=== PATIENT | male | born 1985 | race Caucasian/White ===

== ENCOUNTER 2020-02-28 13:53 | Inpatient (IN) | payer OTHER ==
[~2020-02-28] VITALS: Ht 182.9 cm; Wt 79.8 kg
[2020-02-28] VITALS (11 sets, daily range): BP systolic 128–163; BP diastolic 62–98
[~2020-02-28 13:53] MED LIST: FLEXERIL PO; IBUPROFEN 600600 M1 PO; NAPROSYN500 MG PO; NOHOMEMEDICATIONS; NORCO 5-325 TA1 EACH PO; SENNA-DOCUSATE1 EACH PO; ZANTAC 150MG T150 M1 PO
[2020-02-28 14:57] LABS: HEMATOCRIT 52.2 % (42.0-52.0); HEMOGLOBIN 17.8 gm/dL (14.0-18.0); MCH 31.1 pg (26.0-34.0); MCHC 34.1 g/dL (28.0-37.0); MCV 91.3 fL (80.0-100.0); MPV 10.1 fl. (7.2-11.1); NUCLEATED RBCS 0 /100WBC; PLATELET COUNT* 358 thou/uL (150-400); RBC 5.72 mil/uL (4.50-6.00); RDW-CV 13.4 % (10.5-14.5); WBC 15.4 thou/uL (4.0-11.0)
[2020-02-28 15:06] LABS: CALCIUM 10.5 mg/dL (8.5-10.1); CREATININE 1.7 mg/dL (0.6-1.3); POTASSIUM 5.4 mmol/L (3.5-5.1)
[2020-02-28 15:11] LABS: INFLUENZA A ANTIGEN Negative (Negative); INFLUENZA B ANTIGEN Negative (Negative)
[2020-02-28 15:14] LABS: ALBUMIN 4.6 g/dL (3.4-5.0); TOTAL BILIRUBIN 0.4 mg/dL (<0.1-1.0); TOTAL PROTEIN 9.8 g/dL (6.4-8.2)
[2020-02-28 15:29] LABS: ABSOLUTE LYMPHOCYTES 2.2 thou/uL (0.8-5.3); ABSOLUTE MONOCYTES 0.9 thou/uL (0.0-1.2); ABSOLUTE NEUTROPHILS 12.3 thou/uL (1.6-8.1); PLATELET ESTIMATE ADEQUATE
[2020-02-28 15:30] LABS: URINE BLOOD TRACE (Negative); URINE CLARITY CLEAR; URINE COLOR YELLOW; URINE GLUCOSE-RANDOM 2+ (Negative); URINE KETONES 2+ (Negative); URINE LEUKOCYTES-REFLEX NEGATIVE (Negative); URINE NITRITE-REFLEX NEGATIVE (Negative); URINE PROTEIN 1+ (Negative); URINE SPECIFIC GRAVITY >= 1.030 (1.005-1.030); URINE UROBILINOGEN 0.2 E.U./dl (0.2-1.0)
[2020-02-28 15:31] LABS: URINE BILIRUBIN 1+ (Negative)
[2020-02-28 15:32] LABS: ICTOTEST (BILI CONFIRMATORY) Negative (Negative)
[2020-02-28 15:36] LABS: AMP/METHAMP Negative (Negative); BARBITURATES Negative (Negative); BENZODIAZEPINES Negative (Negative); COCAINE Negative (Negative); METHADONE Negative (Negative); OPIATES Negative (Negative); PCP Negative (Negative); THC POSITIVE (Negative)
--- NOTE | 2020-02-28 15:42 | EKG ---
[place] [address] ELECTROCARDIOGRAM REPORT Name: MICHAEL VIVEROS Room: [facility]#: [id number] Admission: 02/28/20 Attend Phys: Discharge: Date of : 87 Date of Service: 02/28/20 1502 Report #: [id number] THIS REPORT FOR: //name// [facility] ED Test Date: 2020-02-28 Test Time: 15:02:07 Pat Name: MICHAEL VIVEROS Department: Room: Gender: Checker/Stocker: [place] : 1985 Requested By: Kenya Elaine Order Number: [id number] MD: Tom Shahid Measurements Intervals [place] Rate: 105 P: 68 MO: 142 QRS: 37 QRSD: 84 T: 59 QT: 332 QTc: 439 Interpretive Statements Sinus tachycardia LAE, consider biatrial enlargement Baseline wander in lead(s) V3 No previous ECG available for comparison Electronically Signed On 02-28-2020 15:41:20 CDT by Tom Shahid [email or web address] <ELECTRONICALLY SIGNED> By: Tom Shahid MD, [facility] 02/28/20 1541 1502 1502 Tom Shahid MD, [facility] /EPI
[2020-02-28 15:49] LABS: BE -19.7 mmol/L (-2 to +3); PCO2 20.3 mmHg (35.0-45.0); PO2 106.8 mmHg (75.0-100.0)
[2020-02-28 15:51] LABS: pH 7.149 (7.340-7.450)
--- NOTE | 2020-02-28 17:15 | NUR ---
1615 patient received from er per cart. see admission assessment
[2020-02-28 19:41] LABS: CREATININE 1.1 mg/dL (0.6-1.3)
[2020-02-28 19:53] LABS: POTASSIUM 3.9 mmol/L (3.5-5.1)
[2020-02-28 19:56] LABS: ALBUMIN 3.8 g/dL (3.4-5.0); PHOSPHORUS* 3.3 mg/dL (2.5-4.9)
[2020-02-28 20:04] LABS: MAGNESIUM 1.7 mg/dL (1.8-2.4)
--- NOTE | 2020-02-28 20:29 | NUR ---
RECEIVED REPORT AND ASSUMED CARE OF THE PATIENT AT 1900. VSS. FULL ASSESSMENT COMPLETED CHARTED. BED IN LOW POSITION AND LOCKED, CALL LIGHT AND PERSONAL ITEMS IN REACH.
[2020-02-29] VITALS (21 sets, daily range): BP systolic 109–152; BP diastolic 64–92
[2020-02-29 00:11] LABS: ALBUMIN 3.6 g/dL (3.4-5.0); CALCIUM 8.4 mg/dL (8.5-10.1); CREATININE 0.9 mg/dL (0.6-1.3); MAGNESIUM 2.2 mg/dL (1.8-2.4); PHOSPHORUS* 1.9 mg/dL (2.5-4.9); POTASSIUM 4.5 mmol/L (3.5-5.1)
[2020-02-29 04:10] LABS: ALBUMIN 3.5 g/dL (3.4-5.0); CALCIUM 8.4 mg/dL (8.5-10.1); CREATININE 0.8 mg/dL (0.6-1.3); POTASSIUM 4.5 mmol/L (3.5-5.1)
[2020-02-29 04:16] LABS: ALBUMIN 3.5 g/dL (3.4-5.0); CALCIUM 8.2 mg/dL (8.5-10.1); CREATININE 0.9 mg/dL (0.6-1.3); POTASSIUM 4.5 mmol/L (3.5-5.1); TOTAL BILIRUBIN 0.3 mg/dL (<0.1-1.0); TOTAL PROTEIN 7.2 g/dL (6.4-8.2)
[2020-02-29 04:21] LABS: HEMATOCRIT 41.4 % (42.0-52.0); MCHC 35.8 g/dL (28.0-37.0); MCV 86.5 fL (80.0-100.0); MPV 8.8 fl. (7.2-11.1); RBC 4.79 mil/uL (4.50-6.00); RDW-CV 12.7 % (10.5-14.5); WBC 15.1 thou/uL (4.0-11.0)
[2020-02-29 04:42] LABS: HEMOGLOBIN 14.8 gm/dL (14.0-18.0)
[2020-02-29 05:44] LABS: URINE BILIRUBIN NEGATIVE (Negative); URINE BLOOD NEGATIVE (Negative); URINE CLARITY CLEAR; URINE COLOR YELLOW; URINE GLUCOSE-RANDOM 1+ (Negative); URINE KETONES 2+ (Negative); URINE LEUKOCYTES NEGATIVE (Negative); URINE NITRITE NEGATIVE (Negative); URINE PROTEIN NEGATIVE (Negative); URINE UROBILINOGEN 0.2 E.U./dl (0.2-1.0)
--- NOTE | 2020-02-29 09:16 | NUR ---
Nutrition: Pt admitted with DKA. Consult for "new diabetic." Spoke with RN, pt is tele status, likely to go upstairs soon. Eating CHO controlled diet. Insulin drip stopped. BG 197, albumin 3.5. Wt: 168#. Unsure at this point if going home on insulin. RD will follow up tomorrow for diet education when out of ICU, 03/01/20.
--- NOTE | 2020-02-29 15:36 | NUR ---
CM ASSESSMENT: CM SPOKE TO THE PT TO DISCUSS HIS DISCHARGE PLANNING NEEDS. PT A&O, ACTIVE AND INDPENDENT. PT DOES NOT HAVE INSURANCE AND THIS MAY CREATE A BARRIER TO DISCHARGE DEPENDING ON WHAT IS NEEDED. CM INFORMED THE MANAGER CHANGE OF THE NEED TO DISPENSE PT A NEW DIABETIC SUPPLY KIT, SO THAT THE RN IN-CHARGE OF THE PT IS ABLE TO DO THE DIABETIC TEACHING WITH THE PT. CM ALSO FAXED THE RN A RESOURCE PACKET FOR THE PT TO INCLUDE GOOD-RX CARD, COMMUNITY RESOURCE LIST AND CONTACT INFO FOR THE [facility] IN HIS HOME TOWN (TO HELP WILL MEDICATION ASSISTANCE DIABETIC SUPPLIES, AND F/U APPOINTMENTS). CM TO INFORM THE PHYSICIAN OF THE NEED TO ORDER MEDICATIONS FROM THE $4 LIST IF POSSIBLE AND CM WILL ATTEMPT TO ASSIST WILL MEDICATION ASSISTANCE IF NEEDED. CM WILL REMAIN AVAILABLE TO ASSIST AND FOLLOW NEEDED.
--- NOTE | 2020-02-29 17:49 | NUR ---
PT IS A/O X4,VSS.PT DOWNGRADED TO TELE STATUS.ALL DRIPS OFF THIS AM.CARB CONTROL DIET STARTED AND TOLERATED.SLIDING SCALE INSULIN STARTED.NO C/O PAIN.STAFF GENETIC COUNSELOR IS TO BRING DIABETES MONITOR BEFORE DISCHARGE.DIETITIAN TO PROVIDE EDUCATION TO PT 03/01/20.RESOURCES GIVEN TO PT FROM CASE MANAGEMENT.PT INFORMED OF PLAN OF CARE AND COMMUNICATES UNDERSTANDING.CALL LIGHT AND FALL PRECAUTIONS IN PLACE.WILL CONTINUE TO MONITOR FOR DURATION OF SHIFT.
--- NOTE | 2020-02-29 19:54 | NUR ---
REPORT GIVEN TO SERGEI AKINS. PATIENT TRANSFERRED TO TELE UNIT AT 1940.
[2020-03-01 02:07] LABS: GLYCOHEMOGLOBIN (HGB A1C) 12.9 % (4.8-5.6)
[2020-03-01 03:24] LABS: ABSOLUTE EOSINOPHILS 0.1 thou/uL (0.0-0.7); ABSOLUTE LYMPHOCYTES 2.5 thou/uL (0.8-5.3); ABSOLUTE MONOCYTES 0.6 thou/uL (0.0-1.2); ABSOLUTE NEUTROPHILS 6.7 thou/uL (1.6-8.1); BASOPHILS 0.1 %; EOSINOPHILS 1.1 %; HEMATOCRIT 37.3 % (42.0-52.0); HEMOGLOBIN 13.5 gm/dL (14.0-18.0); LYMPHOCYTES 25.3 %; MCH 31.4 pg (26.0-34.0); MCHC 36.2 g/dL (28.0-37.0); MCV 86.7 fL (80.0-100.0); MONOCYTES 6.5 %; MPV 9.3 fl. (7.2-11.1); NUCLEATED RBCS 0 /100WBC; PLATELET COUNT* 215 thou/uL (150-400); WBC 9.9 thou/uL (4.0-11.0)
[2020-03-01 03:36] LABS: PHOSPHORUS* 1.8 mg/dL (2.5-4.9)
[2020-03-01 03:41] LABS: ALBUMIN 3.3 g/dL (3.4-5.0); CALCIUM 8.4 mg/dL (8.5-10.1); CREATININE 0.7 mg/dL (0.6-1.3); MAGNESIUM 1.8 mg/dL (1.8-2.4); PHOSPHORUS* 1.9 mg/dL (2.5-4.9); POTASSIUM 3.8 mmol/L (3.5-5.1)
[2020-03-01 04:00] VITALS: BP 138/73
--- NOTE | 2020-03-01 04:11 | NUR ---
RECEIVED PT FROM ICU PER CART ACCOMPANIED BY ANITRA AKINS AT APPROX 1940. PT IS AWAKE AND ORIENTED X4. PT IS ON HOME STAGER AND IS TRACING SR. ASSESSMENT DONE AND CHARTED. PT DENIES PAIN/NAUSEA. NO ACUTE CHANGES OVERNIGHT. CALL LIGHT WITHIN REACH. HOURLY ROUNDING DONE FOR PT SAFETY.
[2020-03-01 08:00] VITALS: BP 125/70
--- NOTE | 2020-03-01 11:45 | NUR ---
SW called and spoke with Andrew who said he planned to be here another day. He said he had not yet received the diabetic kit or education yet that will be available to him prior to dc through house calls nurse practitioner and RN. HANK/CM to follow to assist with rx assistance/continued resources when needed.
[2020-03-01 15:50] VITALS: BP 111/71
--- NOTE | 2020-03-01 19:15 | NUR ---
RECEIVED REPORT FROM MIYA AKINS. ASSUMED CARE OF PT AROUND 0730. PT A&O X4. MANAGER FILE IN PLACE THIS AM TRACING SR, PT THEN CHANGED TO M/S. AM ASSESSMENT AND VITALS COMPLETED CHARTED. IV INTACT. MEDS PER EMAR. PT TOLERATING DIET. RECEPTIVE TO DIABETES EDUCATION THIS SHIFT BUT REMAINS OVERWHELMED BY NEW DIAGNOSIS. PT HAS DENIED PAIN OR DISCOMFORT THIS SHIFT. VOIDING PER URINAL. I&O'S CHARTED. PT CURRENTLY RESTING IN BED. CALL LIGHT IS WITHIN REACH. HOURLY ROUNDING PERFORMED. LOW FALL RISK PRECAUTIONS IN PLACE.
[2020-03-01 20:00] VITALS: BP 98/67
[2020-03-02 00:59] VITALS: BP 114/70
--- NOTE | 2020-03-02 04:22 | NUR ---
ASSUMED PT CARE AT APPROX 1930. PT IS AWAKE AND ORIENTED X4. ASSESSMENT DONE AND CHARTED. PT DENIES PAIN/DISCOMFORT. NO ACUTE CHANGES OVERNIGHT. PT IS ABLE TO SLEEP. CALL LIGHT WITHIN REACH. HOURLY ROUNDING DONE FOR PT SAFETY.
[2020-03-02 08:00] VITALS: BP 118/66
[2020-03-02] MEDS ORDERED: AZITHROMYCIN 2250 MG PO (11:43)
[2020-03-02] MEDS ORDERED: HUMULIN 70100 UNIT/2 SUBQ (11:43)
[2020-03-02] MEDS ORDERED: GLUCOTROL5 MG PO (11:43)
[2020-03-02] MEDS ORDERED: GLUCOPHAGE500 MG PO (11:43)
[2020-03-02 13:58] VITALS: BP 118/66
--- NOTE | 2020-03-02 15:47 | NUR ---
HANK spoke with pt several times prior to dc to discuss diabetic resources and rx assistance programs as well as RN to provide more education and the resource of [employer] (HANK faxed to RN to provide to pt). HANK spoke with Frieda, Director of Case Management, who approved for one time rx assistance for pt medications due to pt not have insurance and not being able to afford meds. HANK faxed rx assist form to unit to have pt sign and provided instructions on sending to Radha Carcamo. Pt knows to follow up with [facility] or other free clinics to help manage the new diabetes dx.
--- NOTE | 2020-03-02 16:18 | NUR ---
ASSUMED CARE OF PT APPROX 0730. REASSESSMENT COMPLETED CHARTED. MEDICATIONS GIVEN CHARTED. SAFTEY PRECAUTIONS UTILIZED, HOURLY ROUNDED. PT DISCHARGE DISCUSSED WITH CASE MANAGEMENT. PT DIABETES EDUCATION PACKET GIVEN TO PT. COMMUNITY RESOURCE INFORMATION GIVEN TO PT. [employer] PRES[employer] ASSISTANCE FORM SIGNED BY PT AND FAXED TO [employer]. DISCHARGE TEACHING COMPLETED WITH PT, PT VERBALIZED UNDERSTANDING.
== END 2020-03-02 15:00 | disposition home or self-care (01) | DRG 871 ==
LOC: M.ERS 13:53 → M.TBA-ER 15:43 → M.ICU 15:43 → M.2W 02-29 19:40
PROVIDERS: Emergency Medicine; Nurse Practitioner Family; ADMIT Family Medicine
DX: A41.9 Sepsis, unspecified organism (principal); E11.10 Type 2 diabetes mellitus with ketoacidosis without coma; F12.90 Cannabis use, unspecified, uncomplicated; E87.5 Hyperkalemia; J02.0 Streptococcal pharyngitis; Z88.0 Allergy status to penicillin

== ENCOUNTER 2020-12-22 18:23 | Emergency (ER) | payer OTHER ==
[~2020-12-22] VITALS: Ht 182.9 cm; Wt 86.2 kg
--- NOTE | ~2020-12-22 | EKG ---
[place] [address] ELECTROCARDIOGRAM REPORT Name: MICHAEL VIVEROS Room: [facility]#: [id number] Admission: 12/22/20 Attend Phys: Discharge: Date of : 87 Date of Service: 12/22/201906 Report #: [id number] THIS REPORT FOR: //name// [facility] ED Test Date: 2020-12-22 Test Time: 19:07:10 Pat Name: MICHAEL VIVEROS Department: Room: Gender: 3Rd Pressman: [place] : 1985 Requested By: Jennifer Donnelly Order Number: [id number] MD: Measurements Intervals [place] Rate: 90 P: 67 DE: 149 QRS: 45 QRSD: 90 T: 63 QT: 352 QTc: 431 Interpretive Statements Sinus rhythm Probable left atrial enlargement Compared to ECG 02/28/2020 15:02:07 Sinus tachycardia no longer present [email or web address] By: 06 1907 Epiphany EpiphanyMD /EPI
[~2020-12-22 18:23] MED LIST changes: +AZITHROMYCIN 2250 MG PO; +GLUCOPHAGE500 MG PO; +GLUCOTROL5 MG PO; +HUMULIN 70100 UNIT/2 SUBQ
[2020-12-22 18:49] LABS: URINE BILIRUBIN NEGATIVE (Negative); URINE BLOOD NEGATIVE (Negative); URINE CLARITY CLEAR; URINE COLOR YELLOW; URINE GLUCOSE-RANDOM 3+ (Negative); URINE KETONES 2+ (Negative); URINE LEUKOCYTES-REFLEX NEGATIVE (Negative); URINE NITRITE-REFLEX NEGATIVE (Negative); URINE PROTEIN NEGATIVE (Negative); URINE SPECIFIC GRAVITY 1.015 (1.005-1.030); URINE UROBILINOGEN 0.2 E.U./dl (0.2-1.0)
[2020-12-22 19:07] LABS: ABSOLUTE MONOCYTES 0.5 thou/uL (0.0-1.2); ABSOLUTE NEUTROPHILS 5.5 thou/uL (1.6-8.1); BASOPHILS 0.1 %; EOSINOPHILS 0.6 %; HEMOGLOBIN 14.7 gm/dL (14.0-18.0); LYMPHOCYTES 24.8 %; MCH 31.3 pg (26.0-34.0); MCHC 34.3 g/dL (28.0-37.0); MCV 91.3 fL (80.0-100.0); MONOCYTES 6.6 %; NUCLEATED RBCS 0 /100WBC; PLATELET COUNT* 189 thou/uL (150-400); POLYS 67.9 %; RBC 4.71 mil/uL (4.50-6.00); RDW-CV 12.8 % (10.5-14.5); WBC 8.1 thou/uL (4.0-11.0)
[2020-12-22 19:09] LABS: AMP/METHAMP POSITIVE (Negative); BARBITURATES Negative (Negative); BENZODIAZEPINES Negative (Negative); COCAINE Negative (Negative); METHADONE Negative (Negative); OPIATES Negative (Negative); PCP Negative (Negative); THC POSITIVE (Negative)
[2020-12-22 19:18] LABS: CALCIUM 9.6 mg/dL (8.5-10.1); CREATININE 1.3 mg/dL (0.6-1.3); POTASSIUM 4.3 mmol/L (3.5-5.1)
[2020-12-22 19:19] LABS: ALBUMIN 4.1 g/dL (3.4-5.0); TOTAL BILIRUBIN 0.5 mg/dL (<0.1-1.0); TOTAL PROTEIN 8.4 g/dL (6.4-8.2)
[2020-12-22 20:19] LABS: BE -4.8 mmol/L (-2 to +3); PCO2 36.4 mmHg (35.0-45.0); PO2 80.3 mmHg (75.0-100.0); pH 7.358 (7.340-7.450)
[2020-12-22 22:27] VITALS: BP 133/76
--- NOTE | 2020-12-23 13:56 | EKG ---
[place] [address] ELECTROCARDIOGRAM REPORT Name: MICHAEL VIVEROS Room: 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: [place] : 1985 Requested By: Jennifer Donnelly Order Number: [id number] MD: Varun Ayala Measurements Intervals [place] Rate: 90 P: 67 [place]: 149 QRS: 45 QRSD: 90 T: 63 QT: 352 QTc: 431 Interpretive Statements Sinus rhythm Probable left atrial enlargement Compared to ECG 02/28/2020 15:02:07 Sinus tachycardia no longer present Electronically Signed On 12-23-2020 13:56:07 [employer] by Varun Ayala [email or web address] <ELECTRONICALLY SIGNED> By: Varun Ayala MD, [facility] 12/23/20 1356 [id number] Varun Ayala MD, [facility] /EPI
== END 2020-12-22 22:30 | disposition home or self-care (01) ==
LOC: M.ERS 18:23
PROVIDERS: Physician Assistant
DX: U07.1 COVID-19 (principal); E11.65 Type 2 diabetes mellitus with hyperglycemia; F15.90 Other stimulant use, unspecified, uncomplicated; F17.210 Nicotine dependence, cigarettes, uncomplicated; Z88.0 Allergy status to penicillin; Z79.899 Other long term (current) drug therapy; Z98.890 Other specified postprocedural states; Z91.14 Patient's other noncompliance with medication regimen

== ENCOUNTER 2021-02-25 13:48 | Emergency (ER) | payer OTHER ==
[~2021-02-25] VITALS: Ht 182.9 cm; Wt 77.1 kg
[2021-02-25] MEDS ORDERED: NOVOLIN 70100 UNIT/1 SUBQ (13:54)
[2021-02-25 14:09] LABS: BE 1.3 mmol/L (-2 to +3); PO2 VENOUS 64.4 mmHg (35.0-45.0)
[2021-02-25 14:10] LABS: ABSOLUTE EOSINOPHILS 0.1 thou/uL (0.0-0.7); ABSOLUTE LYMPHOCYTES 1.8 thou/uL (0.8-5.3); ABSOLUTE MONOCYTES 0.4 thou/uL (0.0-1.2); ABSOLUTE NEUTROPHILS 4.3 thou/uL (1.6-8.1); BASOPHILS 0.3 %; HEMATOCRIT 34.4 % (42.0-52.0); HEMOGLOBIN 11.9 gm/dL (14.0-18.0); LYMPHOCYTES 27.1 %; MCH 31.4 pg (26.0-34.0); MCHC 34.5 g/dL (28.0-37.0); MCV 91.1 fL (80.0-100.0); MONOCYTES 5.7 %; MPV 7.4 fl. (7.2-11.1); NUCLEATED RBCS 0 /100WBC; PLATELET COUNT* 203 thou/uL (150-400); POLYS 65.9 %; RBC 3.78 mil/uL (4.50-6.00); RDW-CV 13.3 % (10.5-14.5); WBC 6.5 thou/uL (4.0-11.0)
[2021-02-25 14:18] LABS: CREATININE 1.1 mg/dL (0.6-1.3); POTASSIUM 3.6 mmol/L (3.5-5.1)
[2021-02-25 14:23] LABS: ALBUMIN 3.7 g/dL (3.4-5.0); TOTAL BILIRUBIN 0.2 mg/dL (<0.1-1.0)
[2021-02-25 14:30] VITALS: BP 138/84
== END 2021-02-25 14:35 | disposition home or self-care (01) ==
LOC: M.ERS 13:48
PROVIDERS: Family Medicine
DX: E11.65 Type 2 diabetes mellitus with hyperglycemia (principal); F17.210 Nicotine dependence, cigarettes, uncomplicated; Z88.0 Allergy status to penicillin

== ENCOUNTER 2021-06-25 20:02 | Emergency (ER) | payer OTHER ==
[~2021-06-25] VITALS: Ht 182.9 cm; Wt 77.1 kg
[~2021-06-25 20:02] MED LIST changes: +NOVOLIN 70100 UNIT/1 SUBQ
[2021-06-25] MEDS ORDERED: LEVEMIR100 UNIT/1 (20:08)
[2021-06-25 20:53] LABS: URINE BILIRUBIN NEGATIVE (Negative); URINE BLOOD NEGATIVE (Negative); URINE CLARITY CLEAR; URINE COLOR YELLOW; URINE GLUCOSE-RANDOM 2+ (Negative); URINE KETONES TRACE (Negative); URINE LEUKOCYTES-REFLEX NEGATIVE (Negative); URINE NITRITE-REFLEX NEGATIVE (Negative); URINE PROTEIN 1+ (Negative); URINE SPECIFIC GRAVITY >= 1.030 (1.005-1.030); URINE UROBILINOGEN 0.2 E.U./dl (0.2-1.0)
[2021-06-25 20:55] LABS: ABSOLUTE EOSINOPHILS 0.1 thou/uL (0.0-0.7); ABSOLUTE LYMPHOCYTES 1.9 thou/uL (0.8-5.3); ABSOLUTE MONOCYTES 0.5 thou/uL (0.0-1.2); ABSOLUTE NEUTROPHILS 4.5 thou/uL (1.6-8.1); BASOPHILS 0.3 %; EOSINOPHILS 1.7 %; HEMATOCRIT 34.2 % (42.0-52.0); HEMOGLOBIN 11.9 gm/dL (14.0-18.0); LYMPHOCYTES 26.6 %; MCH 32.1 pg (26.0-34.0); MCHC 34.9 g/dL (28.0-37.0); MONOCYTES 6.9 %; MPV 7.2 fl. (7.2-11.1); NUCLEATED RBCS 0 /100WBC; PLATELET COUNT* 195 thou/uL (150-400); POLYS 64.5 %; RBC 3.72 mil/uL (4.50-6.00); RDW-CV 13.5 % (10.5-14.5)
[2021-06-25 21:04] LABS: CALCIUM 8.6 mg/dL (8.5-10.1); POTASSIUM 3.4 mmol/L (3.5-5.1)
[2021-06-25 22:28] VITALS: BP 132/74
--- NOTE | 2021-06-26 14:14 | EKG ---
[place] [address] ELECTROCARDIOGRAM REPORT Name: MICHAEL VIVEROS Room: [facility]#: [id number] Admission: 06/25/21 Attend Phys: Discharge: 06/25/21 Date of : 87 Date of Service: 06/25/212027 Report #: [id number] THIS REPORT FOR: //name// [facility] ED Test Date: 2021-06-25 Test Time: 20:28:41 Pat Name: MICHAEL VIVEROS Department: Room: Gender: Contact Lens Technician: [place] : 1985 Requested By: Louise Parker Order Number: [id number] MD: Martir Andrew Measurements Intervals [place] Rate: 104 P: 62 [place]: 163 QRS: 57 QRSD: 95 T: 57 QT: 338 QTc: 445 Interpretive Statements Sinus tachycardia Anteroseptal infarct, old cannot be excluded Compared to ECG 12/22/2020 19:07:10 Myocardial infarct finding now possible Sinus rate has increased Electronically Signed On 06-26-2021 14:14:36 CDT by Martir Andrew [email or web address] <ELECTRONICALLY SIGNED> By: Martir Andrew MD, [facility] 06/26/21 1414 27 27 Martir Andrew MD, [facility] /EPI
== END 2021-06-25 22:28 | disposition home or self-care (01) ==
LOC: M.ERS 20:02
PROVIDERS: Emergency Medicine
DX: F15.10 Other stimulant abuse, uncomplicated (principal)